=== PATIENT | male | born 1980 | race Caucasian/White ===

== ENCOUNTER → 2022-11-03 14:45 | Outpatient (CLI) | payer OTHER, SELFPAY ==
--- NOTE | ~2022-11-03 | XR_ITS ---
EXAM: XR lumbar spine min 4V DATE: 11/03/2022 15:17 HISTORY: Lt sided Low back pain x 8 wks after working out . COMPARISON: None available. FINDINGS: Mild lumbar scoliosis. 5 nonrib-bearing lumbar-type vertebral bodies. Pedicles intact. Norm al vertebral body alignment. Vertebral body heights preserved. Multilevel disc space narrowing, mild at L3-4 and L4-5, moderate at L5-S1. Normal facets and posterior elements. No fracture or dislocation . Ovoid left pelvic calcifications may represent phleboliths or calcified diverticula. IMPRESSION: Multilevel degenerative lumbar disc disease. Reviewed, dictated and finalized at location K.
== END ==
PROVIDERS: PCP Internal Medicine
DX: M54.50 Low back pain, unspecified (principal); M51.36 Other intervertebral disc degeneration, lumbar region
CPT/HCPCS: 72110